=== PATIENT | female | born 1940 | race Two or more races ===

== ENCOUNTER 2024-01-24 10:37 | Outpatient (CLI) | payer OTHER | END 2024-01-24 10:40 | disposition home or self-care (01) | LOC: NUCLEAR 10:37 | PROVIDERS: ATTEND Internal Medicine Hematology & Oncology | DX: I87.2 Venous insufficiency (chronic) (peripheral) (principal); I73.9 Peripheral vascular disease, unspecified; D51.3 Other dietary vitamin B12 deficiency anemia; I10 Essential (primary) hypertension; E03.8 Other specified hypothyroidism; B96.81 Helicobacter pylori [H. pylori] as the cause of diseases classified elsewhere; D50.8 Other iron deficiency anemias ==

== ENCOUNTER 2024-01-25 10:52 | Outpatient (CLI) | payer OTHER | END 2024-01-25 10:53 | disposition home or self-care (01) | LOC: NUCLEAR 10:52 | PROVIDERS: ATTEND Internal Medicine Hematology & Oncology | DX: I70.213 Atherosclerosis of native arteries of extremities with intermittent claudication, bilateral legs (principal); I10 Essential (primary) hypertension; E03.8 Other specified hypothyroidism; B96.81 Helicobacter pylori [H. pylori] as the cause of diseases classified elsewhere; D50.8 Other iron deficiency anemias; D51.3 Other dietary vitamin B12 deficiency anemia ==